=== PATIENT | female | born 1985 | race Asian ===

== ENCOUNTER 2024-11-02 10:45 | Day surgery (SDC) | payer OTHER, SELFPAY ==
[2024-11-02 11:36] VITALS: BMI 27.1
[2024-11-02] MEDS ORDERED: hydrALAZINE 20 MG/ML VIAL SLOW IVP PRN (12:15)
== END 2024-11-02 13:11 | disposition home or self-care (01) ==
LOC: CSHLD/OP 10:45
PROVIDERS: ATTEND Obstetrics & Gynecology
DX: Z36.89 Encounter for other specified antenatal screening (principal); O36.8130 Decreased fetal movements, third trimester, not applicable or unspecified; O09.523 Supervision of elderly multigravida, third trimester; O09.33 Supervision of pregnancy with insufficient antenatal care, third trimester; Z3A.37 37 weeks gestation of pregnancy
CPT/HCPCS: 59025; 99282

== ENCOUNTER 2024-11-17 05:30 | Inpatient (IN) | payer OTHER ==
[2024-11-17] MEDS ORDERED: Ondansetron PF 4 MG/2 ML Vial IVP PRN (06:02)
[2024-11-17] MEDS ORDERED: hydrALAZINE 20 MG/ML VIAL SLOW IVP PRN ×2 (06:02→21:26)
[2024-11-17] MEDS ORDERED: Promethazine HCl 25 MG/ML VIAL IM PRN (06:02)
[2024-11-17] MEDS ORDERED: Carboprost 250 MCG/ML AMP IM PRN (06:02)
[2024-11-17] MEDS ORDERED: Methylergonovine 0.2 MG/ML VIAL IM PRN (06:02)
[2024-11-17] MEDS ORDERED: Misoprostol 200 MCG TAB PR PRN (06:02)
[2024-11-17] MEDS ORDERED: Docusate 100 MG CAP PO PRN (06:02)
[2024-11-17] MEDS ORDERED: Tranexamic Acid 1,000 MG/10 ML VIAL IVP PRN (06:02)
[2024-11-17] MEDS ORDERED: Lactated Ringer's 1,000 ML IV SCH (06:15)
[2024-11-17] MEDS ORDERED: Oxytocin 30 units/NS 500 ML 500 ML IV SCH (06:15)
[2024-11-17 06:58] LABS: Hematocrit 30.5 % (34.9-44.5); Mean Corpuscular HGB CONC 32.8 g/dL (32.0-36.0); Mean Corpuscular Hemoglobin 26.7 pg (27.0-33.0); Mean Corpuscular Volume 81.6 fL (81.6-98.3); Mean Platelet Volume 9.3 fL (7.4-10.4); Platelet Count 278 10x3/uL (150-450); RBC Distribution Width 15.3 % (11.5-14.5); Red Blood Cell (RBC) Count 3.74 10x6/uL (3.90-5.03)
[2024-11-17 07:31] LABS: Syphilis Antibody Nonreactive (Nonreactive); Syphilis Antibody Index 0.17 S/CO (<1.00 Non-Reactive)
[2024-11-17 07:32] LABS: HBsAg Index 0.21 S/CO (0-0.99); Hep B Surf Ag - L&D Non-Reactive S/CO (NonReactive)
[2024-11-17 07:39] VITALS: BMI 26.9
[2024-11-17] MEDS ORDERED: Ibuprofen 800 MG TAB PO SCH (08:00)
[2024-11-17] MEDS ORDERED: Lidocaine 1% (PF) 30 ML VIAL SC PRN (08:16)
[2024-11-17] MEDS: Misoprostol 100 MCG TAB VAG SCH (09:34)
[2024-11-17] MEDS: Oxytocin 30 units/NS 500 ML 500 ML IV SCH (17:02)
[2024-11-17] MEDS: Lidocaine 1% (PF) 30 ML VIAL SC PRN (21:03)
[2024-11-17] MEDS ORDERED: Bisacodyl 10 MG SUPP PR PRN (21:26)
[2024-11-17] MEDS ORDERED: Milk Of Magnesia 30 ML UDCUP PO PRN (21:26)
[2024-11-17] MEDS: Ibuprofen 800 MG TAB PO SCH (22:55)
[2024-11-18] MEDS: Erythromycin Base 0.5% Oint 1 GM TUBE ONE (01:31)
[2024-11-18] MEDS: Boostrix 0.5 ML (Tdap) VIAL (>/=7 yrs of age) IM ONE (01:31)
[2024-11-18] MEDS: Phytonadione Neonatal 1 MG/0.5 ML AMP ONE (01:31)
[2024-11-18] MEDS: Acetaminophen 500 MG TAB PO PRN (03:51)
[2024-11-18] MEDS: Ferrous Sulfate 325 MG TAB PO SCH (08:00)
[2024-11-18] MEDS: Benzocaine-Menthol 82.5 ML CAN TOP PRN (09:44)
[2024-11-18] MEDS: Docusate 100 MG CAP PO SCH (09:46)
[2024-11-19 07:57] VITALS: BP 99/56; TEMP 97.8
== END 2024-11-19 13:10 | disposition home or self-care (01) | DRG 807 ==
LOC: CSHLD 05:36 → CSHPP 23:15
PROVIDERS: ADMIT Student in an Organized Health Care Education/Training Program; ATTEND Student in an Organized Health Care Education/Training Program
PROC: 10E0XZZ Delivery of Products of Conception, External Approach (ICD-10-PCS; principal; 2024-11-17)
PROC: 0KQM0ZZ Repair Perineum Muscle, Open Approach (ICD-10-PCS; 2024-11-17)
PROC: 3E0DXGC Introduction of Other Therapeutic Substance into Mouth and Pharynx, External Approach (ICD-10-PCS; 2024-11-17)
PROC: 10907ZC Drainage of Amniotic Fluid, Therapeutic from Products of Conception, Via Natural or Artificial Opening (ICD-10-PCS; 2024-11-17)
DX: O99.284 Endocrine, nutritional and metabolic diseases complicating childbirth (principal); E27.8 Other specified disorders of adrenal gland; O76 Abnormality in fetal heart rate and rhythm complicating labor and delivery; Z37.0 Single live birth; O70.1 Second degree perineal laceration during delivery; Z3A.39 39 weeks gestation of pregnancy
CPT/HCPCS: 36415; 85027; 86780; 86850; 86900; 86901; 87340; J2590